=== PATIENT | male | born 1940 | race Caucasian/White ===

== ENCOUNTER 2016-12-26 12:03 | Inpatient (IN) | payer MEDICARE, OTHER ==
[~2016-12-26] VITALS: Ht 175.3 cm; Wt 121.4 kg
[2016-12-26] MEDS ORDERED: SODIUM CHLORIDE FLUSH 10ML SYR IVF ONE (13:00)
[2016-12-26] MEDS ORDERED: ONDANSETRON 2MG/ML, 2ML IVPush ONE ×2 (13:00→17:30)
[2016-12-26] MEDS ORDERED: SODIUM CHLORIDE 0.9% 1,000ML IVBOLUS ONE (13:00)
[2016-12-26 13:29] LABS: HEMATOCRIT 49.7 % (39.2-51.8); HEMOGLOBIN 16.1 g/dL (13.7-18.0); WHITE BLOOD COUNT 9.1 x10^3/uL (3.4-10)
[2016-12-26] MEDS ORDERED: ONDANSETRON 2MG/ML, 2ML ONE (13:31)
[2016-12-26 13:39] LABS: BLOOD UREA NITROGEN 28 mg/dL (7-18)
[2016-12-26 14:05] LABS: ASPARTATE AMINO TRANSFERASE 22 U/L (15-37)
[2016-12-26 14:06] LABS: IS PT STATUS REG ER OR PRE ER? YES
[2016-12-26] MEDS ORDERED: PANTOPRAZOLE 40 MG IV IVP ONE (17:30)
[2016-12-26] MEDS ORDERED: LOSA100T6 PO (18:06)
[2016-12-26] MEDS ORDERED: TRIAM (18:06)
[2016-12-26] MEDS ORDERED: CARV12.52 PO ×2 (18:06)
[2016-12-26] MEDS ORDERED: [UNRECOGNIZED DRUG - OTHER] (18:06)
[2016-12-26] MEDS ORDERED: FINA5TAB4 PO (18:06)
[2016-12-26] MEDS ORDERED: SIMV40TA3 PO (18:06)
[2016-12-26] MEDS ORDERED: ZOLP5TAB6 PO (18:06)
[2016-12-26] MEDS ORDERED: PANTOPRAZOLE 40 MG IV ONE (18:19)
[2016-12-26] MEDS ORDERED: LABETALOL 5MG/ML, 20ML IVPush PRN (18:30)
[2016-12-26] MEDS ORDERED: ONDANSETRON 2MG/ML, 2ML IVPush PRN (18:30)
[2016-12-26] MEDS: CARVEDILOL 12.5 MG TABLET PO SCH (21:00)
[2016-12-26 21:41] VITALS: BP 130/77
[2016-12-26] MEDS: ZOLPIDEM 5MG TABLET PO SCH (21:47)
[2016-12-26] MEDS: SIMVASTATIN 40 MG TABLET PO SCH (21:47)
[2016-12-26] MEDS: HEPARIN 5,000 UNITS/ML, 1ML SQ SCH (21:47)
[2016-12-26 21:53] VITALS: BP 134/86
[2016-12-27] MEDS: SODIUM CHLORIDE 0.9% 1,000 ML IV SCH ×3 (01:24→17:54)
[2016-12-27] MEDS: ACETAMINOPHEN 325 MG TABLET PO PRN ×2 (01:30→17:54)
[2016-12-27 01:40] VITALS: BP 123/68
[2016-12-27] MEDS: HEPARIN 5,000 UNITS/ML, 1ML SQ SCH ×2 (05:14→22:12)
[2016-12-27 05:40] LABS: BLOOD UREA NITROGEN 29 mg/dL (7-18)
[2016-12-27 05:43] LABS: ASPARTATE AMINO TRANSFERASE 16 U/L (15-37)
[2016-12-27 05:47] LABS: HEMATOCRIT 42.4 % (39.2-51.8); HEMOGLOBIN 13.9 g/dL (13.7-18.0); WHITE BLOOD COUNT 7.9 x10^3/uL (3.4-10)
[2016-12-27 06:49] VITALS: BP 109/64
[2016-12-27] MEDS: LOSARTAN 50MG TABLET PO SCH (08:19)
[2016-12-27] MEDS: CARVEDILOL 12.5 MG TABLET PO SCH (08:19)
[2016-12-27] MEDS: PANTOPRAZOLE 40 MG IV IVPush SCH (08:20)
[2016-12-27] MEDS: FINASTERIDE 5 MG TABLET PO SCH (08:20)
[2016-12-27 08:36] LABS: IS PT STATUS REG ER OR PRE ER? NO
[2016-12-27] MEDS ORDERED: LOSARTAN 50MG TABLET PO SCH (09:00)
[2016-12-27 14:30] VITALS: BP 130/75
[2016-12-27] MEDS ORDERED: HEPARIN 5,000 UNITS/ML, 1ML SQ ONE (15:00)
[2016-12-27 19:44] VITALS: BP 153/81
[2016-12-27] MEDS: ZOLPIDEM 5MG TABLET PO SCH (22:11)
[2016-12-27] MEDS: SIMVASTATIN 40 MG TABLET PO SCH (22:11)
[2016-12-28] MEDS: SODIUM CHLORIDE 0.9% 1,000 ML IV SCH ×2 (02:38→10:41)
[2016-12-28 03:50] VITALS: BP 149/64
[2016-12-28] MEDS: HEPARIN 5,000 UNITS/ML, 1ML SQ SCH ×3 (05:48→22:28)
[2016-12-28 07:56] VITALS: BP 150/76
[2016-12-28] MEDS: LOSARTAN 50MG TABLET PO SCH (08:19)
[2016-12-28] MEDS: FINASTERIDE 5 MG TABLET PO SCH (08:19)
[2016-12-28] MEDS: PANTOPRAZOLE 40 MG IV IVPush SCH (08:19)
[2016-12-28 10:44] LABS: HEMATOCRIT 41.7 % (39.2-51.8); HEMOGLOBIN 13.6 g/dL (13.7-18.0); WHITE BLOOD COUNT 7.1 x10^3/uL (3.4-10)
[2016-12-28 10:53] LABS: ASPARTATE AMINO TRANSFERASE 16 U/L (15-37); BLOOD UREA NITROGEN 19 mg/dL (7-18)
[2016-12-28 12:45] VITALS: BP 157/83
[2016-12-28] MEDS ORDERED: SODIUM CHLORIDE 0.9% 1,000 ML IV SCH (15:30)
[2016-12-28] MEDS ORDERED: ONDANSETRON 2MG/ML, 2ML IVPush PRN (15:30)
[2016-12-28] MEDS ORDERED: ACETAMINOPHEN 325 MG TABLET PO PRN (15:30)
[2016-12-28 20:00] VITALS: BP 124/71
[2016-12-28] MEDS: SIMVASTATIN 40 MG TABLET PO SCH (20:56)
[2016-12-28] MEDS ORDERED: ZOLPIDEM 5MG TABLET PO SCH (21:00)
[2016-12-29 02:00] VITALS: BP 142/72
[2016-12-29] MEDS: HEPARIN 5,000 UNITS/ML, 1ML SQ SCH (05:56)
[2016-12-29 07:40] VITALS: BP 150/78
[2016-12-29] MEDS: PANTOPRAZOLE 40 MG IV IVPush SCH (07:44)
[2016-12-29] MEDS: LOSARTAN 50MG TABLET PO SCH (07:44)
[2016-12-29] MEDS: FINASTERIDE 5 MG TABLET PO SCH (07:44)
== END 2016-12-29 10:57 | disposition home or self-care (01) | DRG 391 ==
LOC: ED 16:12 → EDIP 17:29 → 3NE 18:44 → 4WST 12-27 09:47 → DCLOUNGE 12-29 10:49
PROVIDERS: ADMIT Internal Medicine; ATTEND Internal Medicine
DX: K52.9 Noninfective gastroenteritis and colitis, unspecified (principal); J96.00 Acute respiratory failure, unspecified whether with hypoxia or hypercapnia; N17.0 Acute kidney failure with tubular necrosis; N18.4 Chronic kidney disease, stage 4 (severe); Z99.81 Dependence on supplemental oxygen; D69.6 Thrombocytopenia, unspecified; I13.10 Hypertensive heart and chronic kidney disease without heart failure, with stage 1 through stage 4 chronic kidney disease, or unspecified chronic kidney disease; E86.0 Dehydration; R00.1 Bradycardia, unspecified; E78.5 Hyperlipidemia, unspecified; D63.8 Anemia in other chronic diseases classified elsewhere; I44.0 Atrioventricular block, first degree; E78.00 Pure hypercholesterolemia, unspecified; E66.9 Obesity, unspecified; R73.9 Hyperglycemia, unspecified; G47.33 Obstructive sleep apnea (adult) (pediatric); N40.0 Benign prostatic hyperplasia without lower urinary tract symptoms; Z82.0 Family history of epilepsy and other diseases of the nervous system; Z82.49 Family history of ischemic heart disease and other diseases of the circulatory system; Z87.891 Personal history of nicotine dependence; Z68.39 Body mass index [BMI] 39.0-39.9, adult; Z90.49 Acquired absence of other specified parts of digestive tract
CPT/HCPCS: 36415; 70450; 76700; 80053; 81001; 83605; 83690; 84443; 84484; 85025; 93005; 93306; 96361; 96374; 96375; J1644; J2405; C9113; J7030